=== PATIENT | female | born 1965 | race Caucasian/White ===

== ENCOUNTER → 2018-02-08 10:48 | Outpatient (CLI) | payer OTHER, MEDICAID, SELFPAY ==
--- NOTE | 2018-02-08 | DI.MG.S_ITS ---
BILATERAL DIGITAL SCREENING MAMMOGRAM 3D/2D WITH CAD: 02/08/2018 CLINICAL: Routine screening. Comparison is made to exams dated: 03/09/2016 mammogram, 03/08/2015 mammogram, and 10/14/2009 mammogram - [facility]. The tissue of both breasts is extremely dense, which lowers the sensitivity of mammography. Current study was also evaluated with a Computer Aided Detection (CAD) system. No significant masses, calcifications, or other findings are seen in either breast. There has been no significant interval change. IMPRESSION: NEGATIVE There is no mammographic evidence of malignancy. A 1 year screening mammogram is recommended. This exam was interpreted at Station ID: [id number]. NOTE: For mammograms, a report in lay terms will be sent to the patient. Approximately 15% of breast malignancies will not be visualized mammographically. In the management of a palpable breast mass, a negative mammogram must not discourage biopsy of a clinically suspicious lesion. Electronically Signed By: Eli michel/andrez:02/11/2018 07:57:24 letter sent: Normal Exam ACR BI-RADS Category 1: Negative 3341F
== END ==
PROVIDERS: PCP Family Medicine; Visit Provider Family Medicine
DX: Z12.31 Encounter for screening mammogram for malignant neoplasm of breast (principal)
CPT/HCPCS: 77063; 77067

== ENCOUNTER → 2019-03-03 08:51 | Outpatient (CLI) | payer OTHER, MEDICAID, SELFPAY ==
[2019-03-03 09:34] LABS: Add Manual Diff / Slide Review NO; Basophils Absolute Auto 100 /uL (0-100); Basophils Percent Auto 1.1 % (0-2); Eosinophils Absolute Auto 200 /uL (0-450); Eosinophils Percent Auto 3.9 % (2-4); Hemoglobin 11.5 g/dL (12.0-16.0); Lymphocytes Absolute Auto 1900 /uL (1100-4500); Mean Corpuscular HGB Conc 32.8 % (30-36); Mean Corpuscular Hemoglobin 25.9 PG (26-34); Monocytes Absolute Auto 500 /uL (0-900); Monocytes Percent Auto 8.6 % (3-14); Neutrophils Absolute Auto 2600 /uL (1500-7000); Neutrophils Percent Auto 49.4 % (50-75); Platelet Count 230 X10^3/uL (150-400); Red Blood Cell Count 4.43 X10^6/uL (4.0-5.2); Red Cell Distribution Width 15.1 % (11.6-14.8); White Blood Cell Count 5.3 X10^3/uL (4.5-11.0)
[2019-03-03 09:58] LABS: Alanine Aminotransferase 9 IU/L (9-52); Albumin 4.2 g/dL (3.5-5.0); Albumin Globulin Ratio 1.4 (1.0-2.8); Alkaline Phosphatase 54 U/L (38-126); Aspartate Aminotransferase 21 IU/L (14-36); Bilirubin Total 0.4 mg/dL (0.2-1.3); Blood Urea Nitrogen 9 mg/dL (7-17); Calcium 9.2 mg/dL (8.4-10.2); Carbon Dioxide 27 mmol/L (22-32); Chloride 106 mmol/L (98-107); Cholesterol 189 mg/dL (140-199); Estimated Glomerular Filt Rate > 60.0 mL/min (>60); Glucose 95 mg/dL (70-100); HDL Cholesterol 84 mg/dL (40-60); HEMOLYSIS < 15 (0-50); LDL Cholesterol Calculated 99 mg/dL (<100); Potassium 4.1 mmol/L (3.4-5.1); Sodium 139 mmol/L (137-145); Total Protein 7.2 g/dL (6.3-8.2); Triglycerides 30 mg/dL (35-150)
== END ==
PROVIDERS: PCP Family Medicine; Visit Provider Family Medicine
DX: I10 Essential (primary) hypertension (principal); Z00.00 Encounter for general adult medical examination without abnormal findings
CPT/HCPCS: 36415; 80053; 80061; 85025

== ENCOUNTER → 2019-10-16 08:41 | Outpatient (CLI) | payer OTHER, MEDICAID, SELFPAY ==
--- NOTE | 2019-10-16 08:43 | DI.RAD.S_ITS ---
PROCEDURE: XR KNEE RT 3V INDICATIONS: Right knee pain s/p injury TECHNIQUE: 3 views of the knee were acquired. COMPARISON: None. FINDINGS: Bones: No fractures or dislocations. No suspicious bony lesions. Soft tissues: No joint effusion. No suspicious soft tissue calcifications. IMPRESSION: Normal for age, source of current pain after trauma symptoms is not seen. Dictated by: Yg Herrera M.D. on 10/16/2019 at 10:03 Approved by: Yg Herrera M.D. on 10/16/2019 at 10:03
== END ==
PROVIDERS: PCP Family Medicine; Visit Provider Family Medicine
DX: S89.91XA Unspecified injury of right lower leg, initial encounter (principal); M25.561 Pain in right knee; X58.XXXA Exposure to other specified factors, initial encounter
CPT/HCPCS: 73562

== ENCOUNTER → 2021-03-03 07:30 | Outpatient (CLI) | payer OTHER, MEDICAID, SELFPAY ==
[2021-03-03 08:13] LABS: Add Manual Diff / Slide Review NO; Basophils Absolute Auto 100 /uL (0-100); Basophils Percent Auto 1.2 % (0-2); Eosinophils Absolute Auto 300 /uL (0-450); Eosinophils Percent Auto 5.4 % (2-4); Hematocrit 36.8 % (36-46); Hemoglobin 11.7 g/dL (12.0-16.0); Lymphocytes Absolute Auto 1800 /uL (1100-4500); Lymphocytes Percent Auto 37.4 % (25-40); Mean Corpuscular HGB Conc 31.9 % (30-36); Mean Corpuscular Hemoglobin 27.5 PG (26-34); Mean Corpuscular Volume 86.2 fL (80-100); Monocytes Absolute Auto 400 /uL (0-900); Monocytes Percent Auto 9.4 % (3-14); Neutrophils Absolute Auto 2200 /uL (1500-7000); Neutrophils Percent Auto 46.6 % (50-75); Platelet Count 179 X10^3/uL (150-400); Red Blood Cell Count 4.26 X10^6/uL (4.0-5.2); Red Cell Distribution Width 14.5 % (11.6-14.8); White Blood Cell Count 4.8 X10^3/uL (4.5-11.0)
[2021-03-03 09:22] LABS: Creatinine Urine Random 18.5 mg/dL
[2021-03-03 09:27] LABS: Alanine Aminotransferase 19 IU/L (<35); Albumin Globulin Ratio 1.5 (1.0-2.8); Alkaline Phosphatase 45 U/L (38-126); Aspartate Aminotransferase 29 IU/L (14-36); BUN Creatinine Ratio 14.8 (6-22); Bilirubin Total 0.4 mg/dL (0.2-1.3); Blood Urea Nitrogen 9 mg/dL (7-17); Calcium 9.4 mg/dL (8.4-10.2); Carbon Dioxide 26 mmol/L (22-32); Chloride 105 mmol/L (98-107); Cholesterol 188 mg/dL (140-199); Estimated Glomerular Filt Rate > 60.0 mL/min (>60); Globulin 2.7 g/dL (1.7-4.1); Glucose 94 mg/dL (70-100); HDL Cholesterol 98 mg/dL (40-60); HEMOLYSIS < 15 (0-50); LDL Cholesterol Calculated 85 mg/dL (<100); Sodium 137 mmol/L (137-145); Total Protein 6.7 g/dL (6.3-8.2); Triglycerides 25 mg/dL (35-150)
[2021-03-03 09:29] LABS: Microalbumin Urine Random < 0.6 mg/dL (0-1.6)
== END ==
PROVIDERS: PCP Family Medicine; Referring Provider Family Medicine; Visit Provider Family Medicine
DX: I10 Essential (primary) hypertension (principal); N92.0 Excessive and frequent menstruation with regular cycle; N93.9 Abnormal uterine and vaginal bleeding, unspecified; R53.83 Other fatigue; Z86.2 Personal history of diseases of the blood and blood-forming organs and certain disorders involving the immune mechanism
CPT/HCPCS: 36415; 80053; 80061; 82043; 82570; 83001; 83002; 85025

== ENCOUNTER → 2022-05-04 17:40 | Outpatient (CLI) | payer OTHER, MEDICAID, SELFPAY ==
[2022-05-04 20:22] LABS: Follicle Stimulating Hormone 38.4 mIU/mL
[2022-05-04 20:35] LABS: TSH w/ Reflex to FT4 0.69 uIU/mL (0.47-4.68)
== END ==
PROVIDERS: PCP Family Medicine; Referring Provider Obstetrics & Gynecology; Visit Provider Obstetrics & Gynecology
DX: N92.6 Irregular menstruation, unspecified (principal)
CPT/HCPCS: 36415; 83001; 84443

== ENCOUNTER → 2022-05-30 13:24 | Outpatient (CLI) | payer OTHER, MEDICAID, SELFPAY ==
[2022-05-30 14:59] LABS: Cancer Antigen 125 6.8 U/mL (0-35)
== END ==
PROVIDERS: PCP Family Medicine; Referring Provider Obstetrics & Gynecology; Visit Provider Obstetrics & Gynecology
DX: N83.291 Other ovarian cyst, right side (principal)
CPT/HCPCS: 36415; 86304

== ENCOUNTER → 2022-06-06 15:42 | Outpatient (CLI) | payer OTHER, MEDICAID, SELFPAY ==
--- NOTE | 2022-06-06 15:43 | DI.MG.S_ITS ---
BILATERAL DIGITAL SCREENING MAMMOGRAM 3D/2D WITH CAD: 06/06/2022 CLINICAL: Routine screening. Comparison is made to exams dated: 02/08/2018 mammogram, 03/09/2016 mammogram, and 03/08/2015 mammogram - [facility]. Both breasts are extremely dense, which lowers the sensitivity of mammography (category d />75% glandular tissue). Current study was also evaluated with a Computer Aided Detection (CAD) system. No significant masses, calcifications, or other findings are seen in either breast. There has been no significant interval change. IMPRESSION: NEGATIVE There is no mammographic evidence of malignancy. A 1 year screening mammogram is recommended. This exam was interpreted at Station ID: [id number]. NOTE: For mammograms, a report in lay terms will be sent to the patient. Approximately 15% of breast malignancies will not be visualized mammographically. In the management of a palpable breast mass, a negative mammogram must not discourage biopsy of a clinically suspicious lesion. Electronically Signed By: Danny Corley M.D., jr/andrez:06/07/2022 09:45:29 letter sent: Normal Exam ACR BI-RADS Category 1: Negative 3341F
== END ==
PROVIDERS: PCP Family Medicine; Referring Provider Family Medicine; Visit Provider Family Medicine
DX: Z12.31 Encounter for screening mammogram for malignant neoplasm of breast (principal)
CPT/HCPCS: 77063; 77067

== ENCOUNTER → 2022-06-29 09:22 | Outpatient (CLI) | payer OTHER, MEDICAID, SELFPAY ==
--- NOTE | 2022-06-29 09:24 | DI.US.S_ITS ---
PROCEDURE: US PELVIC COMPLETE INDICATIONS: R side pain/R ovarian cyst TECHNIQUE: Real-time scanning was performed of the pelvic organs, with image documentation. Additional endovaginal scanning was necessary due to incomplete visualization of the adnexal and endometrial structures by transabdominal scanning. COMPARISON: [facility], US, US PELVIC COMPLETE, 05/30/2022, 13:06. FINDINGS: Uterus: Uterus measures 8.6 x 5.1 x 6.2 centimeters. It is retroverted. Endometrium measures 7 millimeters. Ovaries: Right ovary measures 3.4 x 3.1 x 2.9 centimeters. Right ovarian simple appearing cyst measures 3.2 x 2.6 x 2.4 centimeters. This previously measured 3.2 x 2.3 x 2.8 centimeters. Color and spectral Doppler flow was noted in the ovarian stroma. Left ovary is not visualized. Other: No pathologic free fluid. IMPRESSION: Stable right simple ovarian cyst. Consider follow-up imaging to document 1 year stability if patient is postmenopausal. We strive to produce accurate, complete, and clear reports of imaging services. To assist us in improving patient care, this report was composed using standard report templates and voice recognition software. Therefore, it may contain abnormal punctuation, insertions and/or omissions. Occasional wrong-word or sound-alike substitutions may occur. Though we review the report and make efforts to correct it, we do recommend that the report be read carefully in proper context to recognize any text inaccuracies. Dictated by: Brandon Ackerman M.D. on 06/29/2022 at 10:10 Approved by: Brandon Ackerman M.D. on 06/29/2022 at 10:13
== END ==
PROVIDERS: PCP Family Medicine; Referring Provider Obstetrics & Gynecology; Visit Provider Obstetrics & Gynecology
DX: N83.291 Other ovarian cyst, right side (principal)
CPT/HCPCS: 76830; 76856; 93976

== ENCOUNTER → 2022-07-27 13:41 | Outpatient (CLI) | payer OTHER, MEDICAID, SELFPAY ==
[2022-07-27 15:09] LABS: COVID19 -Nasal RAPID Negative (Negative)
== END ==
PROVIDERS: PCP Family Medicine; Visit Provider Obstetrics & Gynecology
DX: Z20.822 Contact with and (suspected) exposure to COVID-19 (principal); Z01.812 Encounter for preprocedural laboratory examination
CPT/HCPCS: 87635; C9803

== ENCOUNTER 2022-07-30 09:15 | Day surgery (SDC) | payer OTHER, MEDICAID, SELFPAY ==
[2022-07-30] VITALS (7 sets, daily range): BP systolic 123–156; BP diastolic 87–96; PULSE 60–69; RESP 12–18; TEMP 36.4–37.2; O2SAT 97–100; BMI 19.3
--- NOTE | 2022-07-30 | PATH_ITS ---
[facility] Accession Number: [id number] . 01 Material submitted: . endocervix - ENDOMETRIAL CURETTAGE ([facility]C) . 01 Diagnosis: Endometrium, Curettage: Late secretory phase endometrium. Negative for atypical hyperplasia and malignancy. MRV 08/03/2022 1258 Local . 01 Comment: This case is also reviewed by Dr. Madonna Melton, who concurs with the given interpretation. . 01 Electronically signed: . Kiera Duong MD, Pathologist NPI- [id number] . 01 Gross description: . ENDOMETRIAL CURETTAGE ([facility]): Received in formalin are minute fragments of mucoid and hemorrhagic material measuring 0.7 x 0.7 x 0.3 cm in aggregate. Submitted in toto in 1 cassette. /JACKIE 08/01/2022 0042 Local . 01 Pathologist provided ICD-10: N93.9 . 01 CPT . 448280 Specimen Comment: A courtesy copy of this report has been sent to [phone] Performed at: 01 [facility] [address] [place] [address] [address], [place], [place] [id number] MD Jt Cramer MD Phone: [phone]
[2022-07-30] MEDS: LACTATED RINGERS 1,000 ML 100 ML IV (09:47)
--- NOTE | 2022-07-30 10:19 | PM.PREOP ---
Pre-operative Note COVID-19 COVID-19 status: Negative Result date/Date tested (Pos, Neg/Pending): 07/27/22 Criteria for continued procedure: Non-surgical alternatives not available or appropriate per current SOC Interval Note History & Physical reviewed/Exam performed by Physician: Yes Changes to H&P: No H&P completed within 30 days and has changed as indicated here:: 07/24/22
--- NOTE | 2022-07-30 10:41 | SUR.OPER ---
Lithotomy on padded OR bed, head on pillow, arms secured on padded arm boards at <90 degrees abduction. Legs secured in padded yellow fins stirrups.
--- NOTE | 2022-07-30 11:14 | PM.GYNOP.1 ---
Operative Date/Time/Diagnoses Date of procedure: 07/30/22 Time of procedure: 11:14 Pre-op diagnosis: Abnormal uterine bleeding Glandular crowding on endometrial biopsy Post-op diagnosis: same Procedure & Clinicians Procedure: Procedures Operation Date: 07/30/22 10:30 Actual Procedure Side Surgeon hortensia Hysteroscopy D&David, Karen Caldera MD Indications: Abnormal uterine bleeding Glandular crowding on endometrial biopsy Surgeon: Karen Caldera Anesthesia Type: General (LMA) Operative Notes Findings: 8 week size anteverted uterus Patchy endometrial thickening throughout the cavity Both fallopian tube ostia observed No polyps or fibroids Closure Type: not applicable Specimen(s): endometrial curettings Estimated blood loss (mL): 5 Blood products transfused: none Procedure in detail: The patient was taken to the operating room where she was placed in the dorsal supine position. After adequate LMA general anesthesia was achieved, she was placed in the dorsal lithotomy position, and prepped and draped in the usual sterile fashion. A time-out was performed. A bivalve speculum was placed into the vagina and the anterior lip of the cervix was grasped with a single-tooth tenaculum. The cervical os was sequentially dilated to # 8 Hegar dilator. The hysteroscope was removed. Sharp curettage was performed yielding a large amount of endometrial curettings. The instruments were removed from the uterus. The single-tooth tenaculum was removed from the anterior lip of the cervix. A bivalve speculum was removed from the vagina. Sponge, lap, and instrument counts were correct x2. The patient tolerated the procedure well, and was taken to PACU in stable condition. Complications: none Post-operative Condition: stable Disposition: PACU Plan for aftercare: Home after recovery
== END 2022-07-30 11:47 | disposition home or self-care (01) ==
PROVIDERS: PCP Family Medicine; Referring Provider Obstetrics & Gynecology; Visit Provider Obstetrics & Gynecology
PROC: 0UDB8ZZ Extraction of Endometrium, Via Natural or Artificial Opening Endoscopic (ICD-10-PCS; CPT 58558; principal; 2022-07-30 10:30)
DX: N93.9 Abnormal uterine and vaginal bleeding, unspecified (principal)
CPT/HCPCS: 58558; J1100; J1885; J2405; J2704; J3010

== ENCOUNTER 2022-09-12 05:25 | Emergency (ER) | payer OTHER, MEDICAID, SELFPAY ==
[2022-09-12 05:34] VITALS: BP 200/119; PULSE 72; RESP 18; TEMP 37.4; O2SAT 99; BMI 19.3
--- NOTE | 2022-09-12 05:37 | DI.RAD.S_ITS ---
PROCEDURE: XR CHEST 1V INDICATIONS: chest pain TECHNIQUE: One view of the chest was acquired. COMPARISON: None. FINDINGS: Surgical changes and devices: None. Lungs and pleura: Lungs are clear. No pleural effusions or pneumothorax. Mediastinum: Mediastinal contours appear normal. Heart size is normal. Bones and chest wall: No suspicious bony lesions. Overlying soft tissues appear unremarkable. IMPRESSION: No acute cardiopulmonary findings. Dictated by: Eli Camacho M.D. on 09/12/2022 at 8:06 Approved by: Eli Camacho M.D. on 09/12/2022 at 8:11
--- NOTE | 2022-09-12 05:45 | PC.NURSE ---
pt denies any c/p or SOB just c/o intermittent palpitations
--- NOTE | 2022-09-12 05:49 | ED.ARRPALP ---
HPI - Arrhythmia/Palpitations General Chief Complaint: Arrhythmia/Palpitations Stated Complaint: heart palptations Time Seen by Provider: 09/12/22 05:29 Source: patient Mode of arrival: Ambulatory History of Present Illness HPI narrative: 57-year-old female nonsmoker with history of hypertension, migraines, depression and anxiety presents for evaluation of palpitations that seemed to have been increasing over the past few weeks. She states that they were significant last night and prevented her from sleeping and presents today for evaluation. She states that she feels irregular beats and questions whether not they are skipping beats. She denies any chest pain or shortness of breath. She is not dizzy nor weak or lightheaded but she is certainly concerned. She denies any change in medication or diet. She denies any significant stressors in her life or changes otherwise. Related Data Home Medications Medication Instructions Recorded Confirmed cholecalciferol (vitamin D3) 50 1 tab PO QDAY ##0 02/15/17 07/30/22 mcg (2,000 unit) tablet (Vitamin D3) vitamin B complex (B 1 tab PO QDAY ##0 02/15/17 07/30/22 Complex-Vitamin B12 tablet) propranolol 20 mg tablet 20 mg PO DAILY 05/01/22 09/12/22 Previous Rx's Medication Instructions Recorded triamcinolone acetonide 0.1 % 1 elijah mucous membrane TID ##5 10/04/17 dental paste (Oralone) sumatriptan succinate 100 mg tablet See Rx Instructions .Route 03/22/22 .COMPLEX #60 tabs fluoxetine 10 mg capsule 10 mg PO DAILY #30 caps 06/21/22 Allergies Allergy/AdvReac Type Severity Reaction Status Date / Time latex Allergy Mild RASH Verified 07/30/22 09:30 moxifloxacin Allergy Mild Nausea Verified 07/30/22 09:30 Penicillins Allergy Mild RASH Verified 07/30/22 09:30 codeine AdvReac Mild NAUSEA Verified 07/30/22 09:30 doxycycline AdvReac Mild NAUSEA Verified 07/30/22 09:30 Sulfa (Sulfonamide AdvReac Mild NAUSEA Verified 07/30/22 09:30 Antibiotics) Review of Systems Review of Systems Narrative: GENERAL: Denies chills, fatigue, malaise, fever, sweats. HEENT: Denies sinus pain, ear pain, sore throat, difficulty swallowing, dizziness. RESPIRATORY: Denies dyspnea, cough, wheezing, hemoptysis, sputum. CARDIOVASCULAR: See HPI GASTROINTESTINAL: Denies nausea, vomiting, abdominal pain, diarrhea, constipation, melena. : Denies dysuria, frequency, incontinence, hematuria, urinary retention. MUSCULOSKELETAL: denies weakness, joint pain, or bony pain SKIN: Denies rash, skin lesions, or other NEUROLOGIC: Denies weakness, headache, numbness, change in speech, confusion, seizures, incoordination. PSYCHIATRIC: See HPI 12 point review of systems is negative except for those stated above Patient History Medical History Anemia Arm fracture (~1969) Chicken pox (1996) Clavicle fracture (~1969) Essential hypertension Heavy menstrual period (2005) Irregular menstrual cycle (~1979) Low back strain Lumbar spine pain Migraines (1977) Obstructive sleep apnea of adult Shoulder pain (2013) Supraspinatus tendon tear (2014) Thumb fracture (~1969) Surgical History Anesthesia History of surgery (~1976) Family History Child Age: 28 Seizure disorder Father Age: 92 Gout Diabetes mellitus Afib Sleep apnea Heart disease High cholesterol Grandfather Heart disease Mental health problem LA (myocardial infarction) Tuberculosis Grandmother Diabetes mellitus Asthma T-cell leukemia Mother Heart disease Hypertension Stroke LA (myocardial infarction) Grandfather Cancer Hypertension Lung cancer Smoker Grandmother Mental health problem Dementia Sister Age: 65 Migraine headache Afib Mitral valve prolapse Heart disease Brother No problems noted. Social History marital status: unmarried,living together household members: significant other and children lives independently: Yes caregiver/support person: No housing: house occupational status: employed Smoking Status: Never smoker second hand exposure: No alcohol intake: current substance use type: does not use Smoking Status: Never smoker alcohol intake frequency: holidays/special occasions only Substance Use Type: marijuana Exam Narrative Exam Narrative: GENERAL: [57] year old patient appears stated age. Well-developed patient, in mild distress. Perhaps a bit anxious HEAD: Atraumatic. Normocephalic. EYES: Pupils equal round and reactive. Extraocular motions intact. No scleral icterus. No injection or drainage. ENT: Nose without bleeding, purulent drainage. Throat without erythema, tonsillar hypertrophy or exudate. Airway patent. NECK: Trachea midline. Non tender CARDIOVASCULAR: Regular rate and rhythm without murmurs, gallops, or rubs. RESPIRATORY: Clear to auscultation. Breath sounds equal bilaterally. No wheezes, rales, or rhonchi. GASTROINTESTINAL: Abdomen soft, non-tender, nondistended. EXTREMITIES: No edema or joint tenderness. BACK: Nontender without deformity or crepitance. No flank tenderness. NEURO: AOx3. SKIN: No rash or erythema of visible areas Initial Vital Signs Initial Vital Signs: Vital Signs Temperature 99.4 F 09/12/22 05:34 Pulse Rate 72 09/12/22 05:34 Respiratory Rate 18 09/12/22 05:34 Blood Pressure 200/119 H 09/12/22 05:34 Pulse Oximetry 99 09/12/22 05:34 Oxygen Delivery Method 09/12/22 05:34 Course Orders Ordered: ED Orders 09/12/22 05:37 XR chest 1V Stat COVID19 -Nasal RAPID/Pre-Proc Stat Complete Blood Count AUTO DIFF Stat Comprehensive Metabolic Panel Stat Lipase Stat Magnesium Stat Partial Thromboplastin Time Stat Prothrombin Time INR Stat Troponin & CK Cardiac Panel Stat EKG-12 Lead Stat Vital Signs Vital signs: Vital Signs - 8 hr 09/12/22 05:34 Temperature 99.4 F Pulse Rate 72 Respiratory Rate 18 Blood Pressure 200/119 H Pulse Oximetry 99 Oxygen Delivery Method Room Air MDM - Arrhythmia/Palpitations Lab Data Result diagrams: 09/12/22 06:10 09/12/22 06:10 Labs: Lab Results 09/12/22 09/12/22 09/12/22 Range/Units 06:10 06:10 06:10 WBC 6.3 (4.5-11.0) X10^3/uL RBC 4.33 (4.0-5.2) X10^6/uL Hgb 13.0 (12.0-16.0) g/dL Hct 38.3 (36-46) % MCV 88.6 (80-100) fL MCH 30.0 (26-34) PG MCHC 33.9 (30-36) % RDW 13.1 (11.6-14.8) % Plt Count 187 (150-400) X10^3/uL Neut % (Auto) 49.3 L (50-75) % Lymph % (Auto) 36.5 (25-40) % [place] % (Auto) 9.2 (3-14) % Eos % (Auto) 3.8 (2-4) % Baso % (Auto) 1.2 (0-2) % Neut # (Auto) 3100 (9572-4663) /uL Lymph # (Auto) 2300 (3488-8881) /uL [place] # (Auto) 600 (0-900) /uL Eos # (Auto) 200 (0-450) /uL Baso # (Auto) 100 (0-100) /uL PT 11.3 (10.1-12.7) SECONDS INR 1.0 (0.9-1.3) APTT 26 (26-36) SECONDS Sodium 139 (137-145) mmol/L Potassium 3.8 (3.4-5.1) mmol/L Chloride 102 (98-107) mmol/L Carbon Dioxide 27 (22-32) mmol/L BUN 9 (7-17) mg/dL Creatinine 0.66 (0.52-1.04) mg/dL Estimated GFR > 60 (>60) mL/min BUN/Creatinine Ratio 13.6 (6-22) Glucose 103 H (70-100) mg/dL Calcium 9.2 (8.4-10.2) mg/dL Magnesium 1.8 (1.6-2.3) mg/dL Total Bilirubin 0.4 (0.2-1.3) mg/dL AST 21 (14-36) IU/L ALT 18 (<35) IU/L Alkaline Phosphatase 48 (38-126) U/L Total Creatine Kinase 56 (30-135) U/L CK-MB (CK-2) TNP CK-MB (CK-2) Rel Index TNP Troponin I < 0.012 (0.01-0.034) ng/mL Total Protein 7.2 (6.3-8.2) g/dL Albumin 4.3 (3.5-5.0) g/dL Globulin 2.9 (1.7-4.1) g/dL Albumin/Globulin Ratio 1.5 (1.0-2.8) Lipase 95 (23-300) U/L ECG Data Interpretation: 0541] EKG is normal sinus rhythm rate [ 75] and free of any signs of ischemia, no ST segmental elevation or depression. No T wave inversions. Occasional PACs Discharge Plan Departure Patient Disposition: Home Clinical Impression: Palpitations Instructions: Arrhythmias Activity Restrictions/Additional Instructions: *You have been diagnosed with [palpitations, largely due to premature atrial complexes with a rare PVC. As we discussed your history and physical exam as well as EKG and labs are very reassuring] *What to do: *Please continue to take your regular medications as directed. [ ] New medication prescriptions sent to your pharmacy: [ ] [ ] New medication written as a paper prescription [ ] No new medications given *Please follow up with your primary care provider in 2-3 days, call for an appointment. Let them know you were seen in the Emergency Department and that we ask that you be seen in follow up. We will electronically transmit a record of today's note if your PCP is in our system * as we discussed, please avoid caffeine, nicotine and alcohol and try to minimize your stress as much as possible while focusing on quality sleep *Return to Emergency Department if you should have any new, worsening or concerning symptoms, such as [fever greater than 101 F, shaking chills, worsening pain, persistent vomiting or other bothersome symptoms] Prescriptions: No Action fluoxetine 10 mg capsule 10 mg PO DAILY Qty: 30 1RF Label Comments: Hasn't started taking vitamin B complex [B Complex-Vitamin B12] 1 EACH tablet 1 tab PO QDAY Qty: 0 cholecalciferol (vitamin D3) [Vitamin D3] 2,000 UNIT tablet 1 tab PO QDAY Qty: 0 triamcinolone acetonide [Oralone] 0.1 % paste 1 elijah Mucous Membrane TID Qty: 5 0RF sumatriptan succinate 100 mg tablet See Rx Instructions .ROUTE .COMPLEX Qty: 60 6RF Dose Instruction: TAKE ONE TABLET BY MOUTH EVERY 2 TO 4 HOURS NEEDED FOR MIGRAINE --MAX DAILY DOSE: 2 TABLETS (200 MG)-- Rx Instructions: TAKE ONE TABLET BY MOUTH EVERY 2 TO 4 HOURS NEEDED FOR MIGRAINE --MAX DAILY DOSE: 2 TABLETS (200 MG)-- propranolol 20 mg tablet 20 mg PO DAILY Dose Instruction: TAKE ONE TABLET BY MOUTH TWICE DAILY Referrals: Ruchi Tomlin MD [Primary Care Provider] - Visit Report Forms: Patient Portal/API
[2022-09-12 06:22] LABS: Add Manual Diff / Slide Review NO; Basophils Absolute Auto 100 /uL (0-100); Basophils Percent Auto 1.2 % (0-2); Eosinophils Absolute Auto 200 /uL (0-450); Eosinophils Percent Auto 3.8 % (2-4); Hematocrit 38.3 % (36-46); Lymphocytes Absolute Auto 2300 /uL (1100-4500); Lymphocytes Percent Auto 36.5 % (25-40); Mean Corpuscular HGB Conc 33.9 % (30-36); Mean Corpuscular Volume 88.6 fL (80-100); Monocytes Absolute Auto 600 /uL (0-900); Monocytes Percent Auto 9.2 % (3-14); Neutrophils Absolute Auto 3100 /uL (1500-7000); Neutrophils Percent Auto 49.3 % (50-75); Platelet Count 187 X10^3/uL (150-400); Red Blood Cell Count 4.33 X10^6/uL (4.0-5.2); Red Cell Distribution Width 13.1 % (11.6-14.8); White Blood Cell Count 6.3 X10^3/uL (4.5-11.0)
[2022-09-12 06:32] LABS: Prothrombin Time 11.3 SECONDS (10.1-12.7)
[2022-09-12 06:35] LABS: PTT Partial Thromboplastin Tim 26 SECONDS (26-36)
[2022-09-12 06:37] LABS: Alanine Aminotransferase 18 IU/L (<35); Albumin 4.3 g/dL (3.5-5.0); Albumin Globulin Ratio 1.5 (1.0-2.8); Alkaline Phosphatase 48 U/L (38-126); Aspartate Aminotransferase 21 IU/L (14-36); BUN Creatinine Ratio 13.6 (6-22); Bilirubin Total 0.4 mg/dL (0.2-1.3); Blood Urea Nitrogen 9 mg/dL (7-17); Calcium 9.2 mg/dL (8.4-10.2); Carbon Dioxide 27 mmol/L (22-32); Chloride 102 mmol/L (98-107); Creatine Kinase 56 U/L (30-135); Estimated Glomerular Filt Rate > 60 mL/min (>60); Globulin 2.9 g/dL (1.7-4.1); Glucose 103 mg/dL (70-100); HEMOLYSIS < 15 (0-50); Lipase 95 U/L (23-300); Magnesium 1.8 mg/dL (1.6-2.3); Potassium 3.8 mmol/L (3.4-5.1); Sodium 139 mmol/L (137-145); Total Protein 7.2 g/dL (6.3-8.2)
[2022-09-12 06:48] LABS: Troponin I < 0.012 ng/mL (0.01-0.034)
[2022-09-12 07:12] VITALS: PULSE 64; RESP 18; O2SAT 98
[2022-09-12 07:18] VITALS: BP 169/83
== END 2022-09-12 07:18 | disposition home or self-care (01) ==
PROVIDERS: Emergency Provider Emergency Medicine; PCP Family Medicine
DX: R00.2 Palpitations (principal)
CPT/HCPCS: 36415; 71045; 80053; 82550; 83690; 83735; 84484; 85025; 85610; 85730; 93005; 99284

== ENCOUNTER → 2022-10-17 08:42 | Outpatient (CLI) | payer OTHER, MEDICAID, SELFPAY ==
[2022-10-17 10:51] LABS: Hemoglobin A1C% w Est Avg Glu 5.2 % (4.0-6.0)
[2022-10-17 11:18] LABS: Cholesterol 201 mg/dL (140-199); HDL Cholesterol 97 mg/dL (40-60); LDL Cholesterol Calculated 97 mg/dL (<100); Triglycerides 35 mg/dL (35-150)
[2022-10-17 11:25] LABS: Free T4, Direct Thyroxine 1.03 ng/dL (0.78-2.19)
[2022-10-17 11:39] LABS: Thyroid Stimulating Hormone 1.01 uIU/mL (0.47-4.68)
== END ==
PROVIDERS: PCP Family Medicine; Referring Provider Internal Medicine Cardiovascular Disease; Visit Provider Internal Medicine Cardiovascular Disease
DX: R00.2 Palpitations (principal); Z13.29 Encounter for screening for other suspected endocrine disorder; R73.9 Hyperglycemia, unspecified
CPT/HCPCS: 36415; 80061; 83036; 84439; 84443

== ENCOUNTER → 2022-11-30 16:13 | Outpatient (CLI) | payer OTHER, MEDICAID, SELFPAY ==
--- NOTE | 2022-11-30 16:14 | DI.US.S_ITS ---
PROCEDURE: US PELVIC COMPLETE INDICATIONS: right ovarian cyst TECHNIQUE: Real-time scanning was performed of the pelvic organs, with image documentation. Additional endovaginal scanning was necessary due to incomplete visualization of the adnexal and endometrial structures by transabdominal scanning. COMPARISON: [facility], , US PELVIC COMPLETE, 06/29/2022, 9:34. [facility], US, US PELVIC COMPLETE, 07/24/2022, 8:36. FINDINGS: Uterus: Uterus is anteverted and upper limits of normal in size at 9.3 x 4.4 x 5.9 cm. The myometrium is heterogeneous. The endometrium measures 5 mm combined thickness. Ovaries: The right ovary is not visualized. The left ovary measures 3.7 x 2.1 x 1.5 cm, with a calculated ovarian volume of 6.1 cc. There is a 2.0cm and 1.9 cm simple cyst within the left ovary. Other: No pathologic free abdominal or pelvic fluid. IMPRESSION: Simple left ovarian cysts. We strive to produce accurate, complete, and clear reports of imaging services. To assist us in improving patient care, this report was composed using standard report templates and voice recognition software. Therefore, it may contain abnormal punctuation, insertions and/or omissions. Occasional wrong-word or sound-alike substitutions may occur. Though we review the report and make efforts to correct it, we do recommend that the report be read carefully in proper context to recognize any text inaccuracies. Dictated by: Ciarra Escobar M.D. on 11/30/2022 at 19:39 Approved by: Ciarra Escobar M.D. on 11/30/2022 at 19:41
== END ==
PROVIDERS: PCP Family Medicine; Referring Provider Family Medicine; Visit Provider Family Medicine
DX: N83.291 Other ovarian cyst, right side (principal); N83.292 Other ovarian cyst, left side
CPT/HCPCS: 76830; 76856

== ENCOUNTER → 2023-02-18 15:14 | Outpatient (CLI) | payer OTHER, MEDICAID, SELFPAY ==
[2023-02-18 16:54] LABS: Follicle Stimulating Hormone 3.76 mIU/mL; Progesterone, Total 7.32 ng/mL
[2023-02-18 17:09] LABS: Estradiol, Total 120.6 pg/mL
== END ==
PROVIDERS: PCP Family Medicine; Referring Provider Obstetrics & Gynecology; Visit Provider Obstetrics & Gynecology
DX: N95.1 Menopausal and female climacteric states (principal)
CPT/HCPCS: 36415; 82670; 83001; 84144

== ENCOUNTER → 2023-04-22 08:55 | Outpatient (CLI) | payer OTHER, MEDICAID, SELFPAY ==
--- NOTE | 2023-04-22 | DI.CT.S_ITS ---
PROCEDURE: CT SOFT TISSUE NECK WO/W CON INDICATIONS: Sialolithiasis TECHNIQUE: Before and after the administration of intravenous contrast, 2.0 mm axial sections acquired through the neck and down to the maureen. Additional 2.0 mm coronal and sagittal reformats were generated of the contrast enhanced images. For radiation dose reduction, the following was used: automated exposure control. COMPARISON: [facility], CT, SOFT TISSUE NECK W&WO CONTRAST, 01/06/2010, 10:03. FINDINGS: Skull Base: The visualized intracranial contents, skull, and orbits are unremarkable. Visualized paranasal sinuses are clear. Pharynx and Larynx: The nasopharyngeal airway is patent and midline. Parapharyngeal soft tissues including palatine tonsils and base of the tongue are normal. Retropharyngeal space unremarkable. Normal appearance of the false and true vocal cords. Muscles and Fascial Planes: Fascial planes are well maintained. No abscess or mass lesion. Lymph Nodes: No evidence of adenopathy. There is a punctate 2 mm calculus in a right submandibular lymph node Vasculature: Unremarkable. Submandibular and Parotid Glands: Normal in size and attenuation. No evidence of sialolithiasis Thyroid: Unremarkable. No enlarged or calcified nodules. Bones: No acute fracture. No osteolytic or blastic lesion is evident. Normal bone mineralization. Lung Apices: The visualized lung apices are clear. IMPRESSION: 1. No evidence of sialolithiasis. Both parotid and submandibular glands have an unremarkable appearance. 2. Tiny 2 mm calculus in a right submandibular lymph node. Technically, differential would include calculus in a minor salivary gland, although this is felt to be unlikely. Approved by: Hay Harry M.D. on 04/22/2023 at 17:01
== END ==
PROVIDERS: PCP Family Medicine; Referring Provider Otolaryngology; Visit Provider Otolaryngology
DX: K11.5 Sialolithiasis (principal); K11.20 Sialoadenitis, unspecified
CPT/HCPCS: 70492; Q9967

== ENCOUNTER → 2023-04-26 08:15 | Outpatient (CLI) | payer OTHER, MEDICAID, SELFPAY | PROVIDERS: PCP Family Medicine; Referring Provider Internal Medicine Cardiovascular Disease; Visit Provider Internal Medicine Cardiovascular Disease | DX: R07.9 Chest pain, unspecified (principal); J98.8 Other specified respiratory disorders | CPT/HCPCS: 94060; 94726; 94729 ==

== ENCOUNTER → 2023-05-06 12:35 | Outpatient (CLI) | payer OTHER, MEDICAID, SELFPAY ==
--- NOTE | 2023-05-06 | DI.ECHO.S_ITS ---
[facility] +---------+ : : [address] : : : : [id number] : : : : Phone: [phone] Echocardiogram Report + + :Name: MAO MAYES Study Date: 05/06/2023 Height: 66 in : :[facility] ReadingLocation: Weight: 123 lb : : Gender: Female BSA: 1.6 m2 : :: 1965 Age: 58 yrs BP: 131/87 mmHg: :Reason For Study: PALPITATIONS : :Ordering Physician: MARC, : :ANH Daly Performed By: Kristie Vyas : :Referring: ANH SWENSON : + + Interpretation Summary The ejection fraction is estimated to be 60-65%. The right ventricle is normal in size and function. Injection of contrast documented no interatrial shunt. Compared to the prior study dated 11/09/2022, there is no evidence of an interatrial shunt. Procedure: A two-dimensional transthoracic echocardiogram with color flow and Doppler was performed. The study quality was technically adequate. Comparison is made with the echocardiogram of 11/09/2022. A saline contrast injection was performed to assess for cardiac shunting. The injection was performed through an intravenous line in the right arm. The patient was in sinus rhythm with heart rates between 69-81 bpm during the exam. Left Ventricle: The left ventricle is normal in size and wall thickness. The ejection fraction is estimated to be 60-65%. Right Ventricle: The right ventricle is normal in size and function. Atria: Both atria are normal in size. Injection of contrast documented no interatrial shunt. There is no Doppler evidence for an interatrial shunt. Mitral Valve: The mitral valve is normal. Aortic Valve: The aortic valve is trileaflet. The aortic valve opens well. There is no aortic valve stenosis. No aortic regurgitation is present. Tricuspid Valve: The tricuspid valve is normal. Pericardium/ Pleura There is no pericardial effusion. There is no pleural effusion. MMode/2D Measurements & Calculations LVIDd: 4.2 cm LVIDs: 3.1 cm FS: 27.0 % IVSd: 0.69 cm LVPWd: 0.79 cm LV quezada. diameter/BSA (cm/m^2): 2.6 LV sys. diameter/BSA (cm/m^2): 1.9 Reading Physician:08:43 PM
== END ==
PROVIDERS: PCP Family Medicine; Referring Provider Internal Medicine Cardiovascular Disease; Visit Provider Internal Medicine Cardiovascular Disease
DX: R00.2 Palpitations (principal)
CPT/HCPCS: 93307

== ENCOUNTER → 2023-11-01 08:31 | Outpatient (CLI) | payer OTHER, SELFPAY ==
--- NOTE | 2023-11-01 08:33 | DI.MG.S_ITS ---
BILATERAL DIGITAL SCREENING MAMMOGRAM 3D/2D WITH CAD: 11/01/2023 CLINICAL: Routine screening. Comparison is made to exams dated: 06/06/2022 mammogram, 02/08/2018 mammogram, and 03/09/2016 mammogram - [facility]. Both breasts are heterogeneously dense, which may obscure small masses (category c / 51-75% glandular tissue). Current study was also evaluated with a Computer Aided Detection (CAD) system. No significant masses, calcifications, or other findings are seen in either breast. There has been no significant interval change. IMPRESSION: NEGATIVE There is no mammographic evidence of malignancy. A 1 year screening mammogram is recommended. Based on the Tyrer Cuzick model (a risk assessment model) the patient's lifetime risk is 10.3% and her 10 year risk is 3.6%. According to the ACR, ACS, and NCCN guidelines, an annual breast MRI exam along with mammogram is recommended if the patient's lifetime risk is 20% or greater. This exam was interpreted at Station ID: [id number]. NOTE: For mammograms, a report in lay terms will be sent to the patient. Approximately 15% of breast malignancies will not be visualized mammographically. In the management of a palpable breast mass, a negative mammogram must not discourage biopsy of a clinically suspicious lesion. Electronically Signed By: Naseem dupree/andrez:11/01/2023 08:58:38 letter sent: Normal Exam ACR BI-RADS Category 1: Negative 3341F
== END ==
LOC: MAMMO 08:32
PROVIDERS: PCP Family Medicine; Referring Provider Family Medicine; Visit Provider Family Medicine
DX: Z12.31 Encounter for screening mammogram for malignant neoplasm of breast (principal); R92.333 Mammographic heterogeneous density, bilateral breasts
CPT/HCPCS: 77063; 77067

== ENCOUNTER 2025-03-06 11:02 | Emergency (ER) | payer OTHER, SELFPAY ==
[2025-03-06 11:15] VITALS: BP 187/88; PULSE 72; RESP 18; TEMP 36.9; O2SAT 100; BMI 20.1
--- NOTE | 2025-03-06 11:27 | ED_ITS ---
HPI - Eye Problem General Stated complaint: Eye issue: RT eye seeing shape Time Seen by Provider: 03/06/25 11:06 History of Present Illness HPI Narrative: 59-year-old female history of hypertension, sleep apnea, ocular migraines, anemia, presents with right eye visual disturbance describing as seeing an arc on the right upper outer quadrant this morning but has no headache nausea vomiting fever or chills difficulty speaking swallowing or weakness in any of her extremities. She did take a Emgality shot for her migraine yesterday. Patient reports having ocular migraines in the past but never seen an arc and she was concerned this could be an acute issue. She wears glasses for driving but no contacts. Patient denies any recent trauma or foreign body sensation. Other than what is stated 14 point review of system is negative. Related Data Home Medications ?Medication ?Instructions ?Recorded ?Confirmed cholecalciferol (vitamin D3) 50 1 tab PO QDAY ##0 11/0202/06/25 mcg (2,000 unit) tablet (Vitamin D3) vitamin B complex (B 1 tab PO QDAY ##0 02/15/17 0 02/06/25 Complex-Vitamin B12 tablet) galcanezumab-gnlm 120 mg/mL 120 mg SUBCUT MONTHLY 01/1502/06/25 subcutaneous pen injector (Emgality Pen) ondansetron 4 mg disintegrating 4 mg PO Q8H PRN 02/06/25 tablet Previous Rx's ?Medication ?Instructions ?Recorded sumatriptan succinate 6 mg/0.5 mL 6 mg (0.5 mL) SUBCUT ONCE #1 mL 12/16/23 subcutaneous cartridge (refill) propranolol 20 mg tablet 20 mg PO BID #60 tabs sumatriptan succinate 100 mg tablet 100 mg PO Q2-4H TX N for migraine 12/14/24 #60 tabs hydrocortisone 2.5 % topical cream 1 applic topical BI D PRN rash #30 02/06/25 grams Allergies Allergy/AdvReac Type Severity Reaction Status Date / Time latex Allergy Mild RASH Verified 03/06/25 11:23 moxifloxacin Allergy Mild Nausea Verified 03/06/25 11:23 Penicillins Allergy Mild RASH Verified 03/06/25 11:23 codeine AdvReac Mild NAUSEA Verified 03/06/25 11:23 doxycycline AdvReac Mild NAUSEA Verified 03/06/25 11:23 Sulfa (Sulfonamide AdvReac Mild NAUSEA Verified 03/06/25 11:23 Antibiotics) Review of Systems Review of Systems ROS Unobtainable: All systems reviewed & are unremarkable except as noted in HPI and below Patient History Medical History Low back strain Obstructive sleep apnea of adult Essential hypertension Supraspinatus tendon tear (2014) Shoulder pain (2013) Lumbar spine pain Arm fracture (~1969) Thumb fracture (~1969) Clavicle fracture (~1969) Chicken pox (1996) Migraines (1977) Anemia Irregular menstrual cycle (~1979) Heavy menstrual period (2005) Surgical History Anesthesia History of surgery (~1976) Family History Child Age: 31 Seizure disorder Father Age: 95 Gout Diabetes mellitus Afib Sleep apnea Heart disease High cholesterol Grandfather Heart disease Mental health problem PR (myocardial infarction) Tuberculosis Grandmother Diabetes mellitus Asthma T-cell leukemia Mother Heart disease Hypertension Stroke PR (myocardial infarction) Grandfather Cancer Hypertension Lung cancer Smoker Grandmother Mental health problem Dementia Sister Age: 68 Migraine headache Afib Mitral valve prolapse Heart disease Brother No problems noted. Social History marital status: unmarried,living together household members: significant other and children lives independently: Yes caregiver/support person: No housing: house occupational status: employed second hand exposure: No alcohol intake: current substance use type: does not use alcohol intake frequency: holidays/special occasions only Exam Narrative Exam Narrative: GENERAL: [59] year old patient appears stated age. Well-developed patient, in mild distress. HEAD: Atraumatic. Normocephalic. EYES: Pupils equal round and reactive. Extraocular motions intact. No scleral icterus. No injection or drainage. EXTREMITIES: No edema or joint tenderness. BACK: Nontender without deformity or crepitance. No flank tenderness. NEURO: AOx3. SKIN: No rash or erythema of visible areas MDM - Eye Problem MDM Narrative Medical decision making narrative: Vital signs, nurse triage note, medication list, previous ER visits, an all imaging studies reviewed. In summary patient has history of ocular migraines whereby she sees blue and red as well as squiggly lines which is different from her previous baseline today has black and white seen in our peripherally superiorly distributing into a tree branch like distribution. Intra-ocular pressure here was 16, affected eye was 20/50 and bilateral eye was 20/40. Bedside ultrasound did not show any vitreous hemorrhage or retinal detachment. Case was also discussed with Dr. Rosado supervisor of instruction on-call at [facility] to have patient follow up with local supervisor of instruction on Saturday for re-evaluation and to return with strict precautions which were given that included seeing flashes of light, changing shape, strobe light, new floaters, and curtains in the vision. Differential diagnosis includes retinal detachment, vitreous hemorrhage, acute closure glaucoma, central retinal artery occlusion, central retinal venous occlusion, corneal abrasion, foreign body Discharge Plan Departure Patient Disposition: Home Clinical Impression: Ocular migraine Instructions: DI for Visual Field Disturbances Activity Restrictions/Additional Instructions: Return with new or worsening symptoms which include seeing flashes of light, changing shape, strobe light, new floater, curtains in the vision. Please follow up with Dr. Davis or Dr. Sims on Saturday. Prescriptions: No Action Emgality Pen 120 mg/mL pen injector 120 mg SUBCUT MONTHLY ondansetron 4 mg tablet,disintegrating 4 mg PO Q8H PRN hydrocortisone 2.5 % cream 1 applic topical BID PRN (Reason: rash) Qty: 30 0RF vitamin B complex [B Complex-Vitamin B12] 1 EACH tablet 1 tab PO QDAY Qty: 0 cholecalciferol (vitamin D3) [Vitamin D3] 2,000 UNIT tablet 1 tab PO QDAY Qty: 0 sumatriptan succinate 6 mg/0.5 mL cartridge 6 mg SUBCUT ONCE Qty: 1 2RF Rx Instructions: may repeat dose once in 1 hour if not relieved propranolol 20 mg tablet 20 mg PO BID Qty: 60 2RF sumatriptan succinate 100 mg tablet 100 mg PO Q2-4H PRN (Reason: for migraine) Qty: 60 0RF Referrals: Ruchi Tomlin MD [Primary Care Provider, Family Practice] Jaswinder Davis MD [Physician, Ophthalmology] - As soon as possible Referral Note: Rule out retinal detachment or vitreous hemorrhage. Seeing arc in her vision Stand Alone Forms: Patient Portal/API
[2025-03-06] MEDS: FLUORESCEIN 1 MG STRIP EYE-RIGHT (11:35)
[2025-03-06] MEDS: PROPARACAINE 0.5% OPHTH SOL 1 DROPS EYE-RIGHT (11:35)
[2025-03-06 13:26] VITALS: BP 161/84; PULSE 60; O2SAT 100
== END 2025-03-06 13:25 | disposition home or self-care (01) ==
PROVIDERS: Emergency Provider Family Medicine; PCP Family Medicine
DX: G43.B0 Ophthalmoplegic migraine, not intractable (principal)
CPT/HCPCS: 99282

== ENCOUNTER → 2025-03-30 16:50 | Outpatient (CLI) | payer OTHER, SELFPAY ==
--- NOTE | 2025-03-30 16:51 | DI.RAD.S_ITS ---
PROCEDURE: XR WRIST RT MIN 3V INDICATIONS: wrist pain TECHNIQUE: Four views of the right wrist were acquired. COMPARISON: None. 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 on 03/31/2025 at 12:14 Approved by: Todd Garcia M.D. on 03/31/2025 at 12:14
== END ==
PROVIDERS: PCP Family Medicine; Referring Provider Family Medicine; Visit Provider Family Medicine
DX: M18.11 Unilateral primary osteoarthritis of first carpometacarpal joint, right hand (principal); M19.031 Primary osteoarthritis, right wrist; R52 Pain, unspecified
CPT/HCPCS: 73110